=== PATIENT | male | born 1995 | race Caucasian/White ===

== ENCOUNTER 2023-04-16 13:35 | Emergency (ER) | payer MEDICAID ==
[~2023-04-16] VITALS: Ht 185.4 cm; Wt 77.8 kg
[2023-04-16 13:35] VITALS: BP 104/63; TEMP 98.1; O2SAT 99
== END 2023-04-16 15:07 | disposition left against medical advice (07) ==
LOC: M ED 13:35
DX: Z53.21 Procedure and treatment not carried out due to patient leaving prior to being seen by health care provider (principal)